=== PATIENT | male | born 1955 | race Native Hawaiian/Other Pacific Islander ===

== ENCOUNTER 2018-05-30 12:11 | Outpatient (CLI) | payer OTHER | END 2018-05-30 12:12 | disposition home or self-care (01) | LOC: C.LAB 12:11 | DX: M81.8 Other osteoporosis without current pathological fracture (principal); R79.89 Other specified abnormal findings of blood chemistry ==

== ENCOUNTER 2018-09-16 11:47 | Outpatient (CLI) | payer OTHER | END 2018-09-16 11:48 | disposition home or self-care (01) | LOC: C.LAB 11:47 | DX: Z00.01 Encounter for general adult medical examination with abnormal findings (principal) ==